=== PATIENT | female | born 1975 | race Hispanic/Latino ===

== ENCOUNTER 2024-06-02 23:02 | Emergency (ER) | payer OTHER ==
[~2024-06-02] VITALS: Ht 157.5 cm; Wt 63.5 kg
[2024-06-02 23:10] VITALS: PULSE 52; RESP 16; TEMP 97.5
[2024-06-02] MEDS: METOCLOPRAMIDE HCL 10 MG/2ML VIAL IV ONE (23:40)
[2024-06-03] MEDS: SODIUM CHLORIDE 0.9% 1000ML 1,000 ML IV SCH (00:31)
[2024-06-03] MEDS: DIPHENHYDRAMINE HCL INJ 50 MG/ML VIAL IV ONE (00:32)
[2024-06-03] MEDS: KETOROLAC TROMETHAMINE 30 MG/ML VIAL IV STA (00:51)
[2024-06-03] MEDS ORDERED: SODIUM CHLORIDE 0.9% 1000ML 1,000 ML IV SCH (01:16)
[2024-06-03 01:30] VITALS: BP 110/65; PULSE 54; RESP 18; TEMP 97.8; O2SAT 97
== END 2024-06-03 01:30 | disposition home or self-care (01) ==
LOC: FSED 23:20
DX: R51.9 Headache, unspecified (principal); R11.0 Nausea; R20.0 Anesthesia of skin
CPT/HCPCS: 70450; 99284; J1200; J1885; J2765; J7030